=== PATIENT | female | born 1930 | race Caucasian/White ===

== ENCOUNTER → 2016-08-12 | Outpatient (CLI) | payer MEDICARE, OTHER ==
[~2016-08-12] MED LIST: ASCO500C7 PO; CELE200C PO; CHOL100062 PO; EZET10TA3 PO; GABA100C14 PO; PRAV40TA76 PO
--- NOTE | 2016-08-12 15:08 | RADRPT ---
PROCEDURE: XR Left Hip and pelvis. CLINICAL INDICATION: Left hip pain. Pelvic pain. TECHNIQUE: Two views. Frontal pelvis and lateral left hip. COMPARISON: 05/13/2016. FINDINGS: As seen previously, there are bilateral total hip arthroplasties which appears satisfactory. There is no dislocation or loosening. There is a healing comminuted fracture of the left superior and inferior pubic rami. There is no ot her fracture. There are degenerative changes of the lower lumbar spine. There is no lytic or blastic lesion. IMPRESSION: 1. Bilateral total hip arthroplasties. 2. Healing comminuted fracture of the left superior and inferior pubic rami. 3. Degenerative changes of the lower lumbar spine. RPTAT: QQ .Renard Melo MD, MD Date Time Electronically viewed and signed by .Renard Melo MD, on 08/12/2016 15:08 .R/
== END | disposition home or self-care (01) ==
LOC: HKI 13:09
PROVIDERS: ATTEND Orthopaedic Surgery
DX: S32.512D Fracture of superior rim of left pubis, subsequent encounter for fracture with routine healing (principal); Z96.643 Presence of artificial hip joint, bilateral; Z96.651 Presence of right artificial knee joint
CPT/HCPCS: 73502; G0463